=== PATIENT | male | born 1965 | race Caucasian/White ===

== ENCOUNTER 2021-05-09 23:08 | Emergency (ER) | payer OTHER ==
[2021-05-10 00:20] VITALS: BP 114/68; PULSE 64; RESP 14; TEMP 98.5
--- NOTE | 2021-05-10 00:34 | ED ---
General Adult HPI - General Chief complaint: Allergic Reaction Stated complaint: Allergic Reaction Time Seen by Provider: 05/09/21 23:17 Source: patient, EMS, RN notes reviewed, old records reviewed Mode of arrival: EMS Limitations: no limitations - History of Present Illness Initial comments: 55-year-old male who presents for evaluation of dry mouth and difficulty swallowing. Patient had started an antihistamine earlier today and he developed dry mouth difficulty swallowing as well as fatigue. Patient was given Benadryl by paramedics during transport. No dyspnea. No vomiting. No rash. - Related Data Home Medications Medication Instructions Recorded Confirmed Acetaminophen [Tylenol Arthritis] 650 mg PO Q4H PRN 05/09/21 05/09/21 Calcium/Mag/Zinc/ Vit D 1 tab PO TID PRN 05/09/21 05/09/21 Chlorpheniramine Maleate 4 mg PO Q4H PRN 05/09/21 05/09/21 [Chlor-Trimeton] Ibuprofen [Motrin Ib] 600 mg PO Q6HR PRN 05/09/21 05/09/21 Levsin Unknown Dose 1 tab PO QID PRN 05/09/21 05/09/21 Loperamide HCl [Imodium A-D] 2 cap PO QID PRN 05/09/21 05/09/21 Mag Hydrox/Aluminum Hyd/Simeth 30 ml PO Q4H PRN 05/09/21 05/09/21 [Mylanta Maximum Strength Liq] Multivitamins, Thera [Multivitamin 1 tab PO DAILY 05/09/21 05/09/21 (formulary)] OLANZapine 10 mg PO BID 05/09/21 05/09/21 OLANZapine 20 mg PO HS 05/09/21 05/09/21 OXcarbazepine [Trileptal] 600 mg PO BID 05/09/21 05/09/21 Thiamine Unknown Dose 1 tab PO DAILY 05/09/21 05/09/21 Zofran Unknown Dose 1 tab PO Q6H PRN 05/09/21 05/09/21 buprenorphine HCL [Subutex] See Taper SUBLINGUAL DIRECTED 05/09/21 05/09/21 cloNIDine HCL [Catapres] 0.1 mg PO Q4H PRN 05/09/21 05/09/21 diphenhydrAMINE [Benadryl] 50 mg PO ONCE PRN 05/09/21 05/09/21 Allergies Allergy/AdvReac Type Severity Reaction Status Date / Time No Known Allergies Allergy Unverified 05/09/21 23:18 Review of Systems ROS Statement: Those systems with pertinent positive or pertinent negative responses have been documented in the HPI. ROS Other: All systems not noted in ROS Statement are negative. Past Medical History History of Any Multi-Drug Resistant Organisms: None Reported Past Psychological History: Bipolar Smoking Status: Current every day smoker Past Alcohol Use History: Abuse Past Drug Use History: Marijuana, Methamphetamine General Exam Limitations: no limitations General appearance: alert, in no apparent distress Head exam: Present: atraumatic, normocephalic Eye exam: Present: normal appearance, PERRL ENT exam: Present: normal oropharynx, mucous membranes dry Neck exam: Present: normal inspection. Absent: tenderness, meningismus Respiratory exam: Present: normal lung sounds bilaterally. Absent: respiratory distress, wheezes GI/Abdominal exam: Present: soft. Absent: distended, tenderness Extremities exam: Present: normal inspection, normal capillary refill. Absent: pedal edema Neurological exam: Present: alert, oriented X3, CN II-XII intact. Absent: motor sensory deficit Psychiatric exam: Present: normal affect, normal mood Skin exam: Present: warm, dry, intact. Absent: cyanosis, diaphoretic Course Vital Signs 05/09/21 23:40 Temperature 98.5 F Pulse Rate 64 Respiratory 14 Rate Blood Pressure 114/68 O2 Sat by Pulse 94 L Oximetry EKG Findings - EKG Comments: EKG Findings:: EKG: Normal sinus rhythm, rate of 60, WV interval 152, QRS duration 106, QTC 420, no ST segment elevation. Medical Decision Making - Medical Decision Making 55-year-old male with dry mouth after taking antihistamine. This is likely reaction to this medication. The Benadryl that he was administered by paramedics likely did not help. He is hemodynamically stable. He has no pharyngeal swelling. No signs of ALLERGIC reaction. This is known reaction to antihistamines. He can be discharged. He should avoid antihistamines. Patient discharged back to [place]. Disposition Clinical Impression: Drug reaction Disposition: HOME SELF-CARE Condition: Fair Instructions (If sedation given, give patient instructions): Adverse Drug Reaction (ED) Additional Instructions: Please avoid antihistamines Is patient prescribed a controlled substance at d/c from ED?: No Referrals: Nonstaff,Physician [Primary Care Provider] - 1-2 days Time of Disposition: 00:34
== END 2021-05-10 01:25 | disposition home or self-care (01) ==
LOC: EC 23:08
DX: R13.10 Dysphagia, unspecified (principal); F17.200 Nicotine dependence, unspecified, uncomplicated
CPT/HCPCS: 93005; 99284